=== PATIENT | male | born 1975 | race Caucasian/White ===

== ENCOUNTER → 2021-01-13 15:08 | Outpatient (CLI) | payer BC, SELFPAY ==
--- NOTE | ~2021-01-13 | XR_ITS ---
XR foot LT 2V DATE: 01/13/2021 15:20 INDICATION: Left foot pain TECHNIQUE: PA and lateral views of left foot COMPARISON: None FINDINGS: There is slight plantar and mild posterior calcaneal enthesopathy. There is mild joint space narrowing at the first metatarsophalangeal joint. No fracture or dislocation, periosteal reaction or bone destruction. IMPRESSION: Slight plantar and mild posterior calcaneal enthesopathy Reviewed, dictated and finalized at location A.
== END ==
PROVIDERS: PCP Family Medicine; Visit Provider Family Medicine
DX: M79.672 Pain in left foot (principal); M77.32 Calcaneal spur, left foot
CPT/HCPCS: 73620

== ENCOUNTER 2021-02-27 01:25 | Day surgery (SDC) | payer BC, SELFPAY ==
[2021-02-08 15:15] VITALS: BMI 29.2
[2021-02-27 06:22] VITALS: BMI 29.2
[2021-02-27 06:25] VITALS: BP 140/83; PULSE 96; RESP 18; TEMP 36; O2SAT 97
[2021-02-27] MEDS: LACTATED RINGERS 1,000 ML 150 ML IV CONT (06:27)
--- NOTE | 2021-02-27 07:05 | WPDANESEPPF ---
Anes - Initial Pre Proc Eval Procedure: Operation Date: 02/27/21 07:30 Proposed Procedures p Screening Colonoscopy - Alber Jean-Baptiste MD Date/Time: 02/27/21 07:05 Surgeon: Alber Jean-Baptiste MD Pre Op Diagnosis: neoplasm screening Patient Data Age: 45 Gender: M Height: 1.78 m Weight: 92.6 kg Last Vital Signs Temp 36.0 C L 02/27/21 06:25 Pulse 96 02/27/21 06:25 Resp 18 02/27/21 06:25 BP 140/83 02/27/21 06:25 Pulse Ox 97 02/27/21 06:25 Allergies Allergy/AdvReac Type Severity Reaction Status Date / Time hydrochlorothiazide Allergy Unknown Dizziness Verified 02/27/21 06:19 Home Medications Medication Instructions Recorded Confirmed Type cholecalciferol (vitamin D3) 25 25 mcg PO DAILY 04/06/19 02/27/21 History mcg (1,000 unit) tablet esomeprazole magnesium 20 mg 20 mg PO DAILY 04/06/19 02/27/21 History capsule,delayed release amlodipine 10 mg tablet 10 mg PO DAILY #90 tablet 07/19/20 02/27/21 Rx lisinopril 40 mg tablet 40 mg PO DAILY #90 tablet 07/22/20 02/27/21 Rx lorazepam 0.5 mg tablet 0.5 mg PO TID PRN #15 tablet 08/31/20 02/27/21 Rx fenofibrate 160 mg tablet 160 mg PO DAILY #90 tablet 01/10/21 02/27/21 Rx Patient hx anesthesia problems: none Family hx anesthesia problems: none Results Review: All pre-operative results and documents have been reviewed as part of the pre-operative evaluation. [facility] Past Medical History Medical History (Updated 02/27/21 @ 07:06 by Sudeep Alonso MD) Chronic GERD HLD (hyperlipidemia) HTN (hypertension) GELY (obstructive sleep apnea) Family History Family History Father Hypertension Mother Hypertension Cerebrovascular accident Sibling Hypertension Social History Social History Smoking status: Never smoker Second hand tobacco smoke exposure: No Alcohol intake: current Drinks per week: 3 Substance use: never Substance use type: does not use Living arrangements: with family Gender identity (if verbalized by the patient): Male Sexual Orientation (if Verbalized by the Patient): Straight or Heterosexual Spiritual care concerns: No Anes - Eval Final PreProcedure Day of Procedure 02/27/21 07:05 Patient weight: overweight Heart: regular rate and rhythm Lungs: clear to auscultation and normal air movement Airway: Mallampati scale class II Neurological: alert and oriented Last oral intake: >/= 8 hours ASA classification: II Emergent: no Anesthetic plan: proceed Anesthesia type and monitoring: general GIVS Results Review: All pre-operative results and documents have been reviewed as part of the pre-operative evaluation. Informed Consent: The patient's anesthetic plan and its attendant risks and benefits were discussed with the patient/family/POA. Questions were solicited and answers provided to the satisfaction of the patient/family/POA.
--- NOTE | 2021-02-27 07:13 | WPDGICN ---
Assessment and Plan Assessment and plan (1) Malignant neoplasm screen: Code(s): Z12.9 - Encounter for screening for malignant neoplasm, site unspecified Status: Acute Assessment and Plan: Patient presents for screening colonoscopy. Further recommendations will be given after endoscopy. GI Consult Note Consult date/time: 02/27/21 07:13 HPI: David Guy Jr. is a 45 year old male Presents for screening colonoscopy. Patient states his current weight appetite bowel movements are normal. Family history noncontributory. He reports 1 brief episode rectal bleeding 4 months ago. Patient denies any abdominal pain. He did have a colonoscopy perhaps 20 years ago that was performed for Constipation.. No specific findings were identified. Review of Systems Review of Systems: All systems reviewed & are unremarkable except as noted in HPI and below PMFSH Past Medical History Medical History (Updated 02/27/21 @ 07:06 by Sudeep Alonso MD) Chronic GERD HLD (hyperlipidemia) HTN (hypertension) GELY (obstructive sleep apnea) Family History Family History Father Hypertension Mother Hypertension Cerebrovascular accident Sibling Hypertension Social History Social History Smoking status: Never smoker Second hand tobacco smoke exposure: No Alcohol intake: current Drinks per week: 3 Substance use: never Substance use type: does not use Living arrangements: with family Gender identity (if verbalized by the patient): Male Sexual Orientation (if Verbalized by the Patient): Straight or Heterosexual Spiritual care concerns: No Meds Home Medications and Allergies Home Medications Medication Instructions Recorded Confirmed Type cholecalciferol (vitamin D3) 25 25 mcg PO DAILY 04/06/19 02/27/21 History mcg (1,000 unit) tablet esomeprazole magnesium 20 mg 20 mg PO DAILY 04/06/19 02/27/21 History capsule,delayed release amlodipine 10 mg tablet 10 mg PO DAILY #90 tablet 07/19/20 02/27/21 Rx lisinopril 40 mg tablet 40 mg PO DAILY #90 tablet 07/22/20 02/27/21 Rx lorazepam 0.5 mg tablet 0.5 mg PO TID PRN #15 tablet 08/31/20 02/27/21 Rx fenofibrate 160 mg tablet 160 mg PO DAILY #90 tablet 01/10/21 02/27/21 Rx Allergies Allergy/AdvReac Type Severity Reaction Status Date / Time hydrochlorothiazide Allergy Unknown Dizziness Verified 02/27/21 06:19 Vital Signs Vital Signs - 24 hr 02/27/21 06:25 Temperature 96.8 F L Pulse Rate 96 Respiratory Rate 18 Blood Pressure 140/83 Pulse Oximetry 97 Exam Narrative: Physical exam reveals patient be alert. Vital signs stable. HEENT exam is unremarkable. Patient is anicteric. Lungs are clear to auscultation and percussion. Heart is without murmur or extra sounds. Abdominal exam bowel sounds present soft nontender with no organomegaly. Digital external rectal exam is normal.
[2021-02-27 07:44] VITALS: BP 107/72; PULSE 89; RESP 17; O2SAT 99
[2021-02-27 07:54] VITALS: BP 113/72; PULSE 75; RESP 18; O2SAT 98
[2021-02-27 08:04] VITALS: BP 132/90; PULSE 68; RESP 15; O2SAT 99
== END 2021-02-27 08:08 | disposition home or self-care (01) ==
PROVIDERS: PCP Family Medicine; Visit Provider Internal Medicine Gastroenterology
PROC: 0DJD8ZZ Inspection of Lower Intestinal Tract, Via Natural or Artificial Opening Endoscopic (ICD-10-PCS; CPT 45378; principal; 2021-02-27 07:30)
DX: Z12.11 Encounter for screening for malignant neoplasm of colon (principal); K64.8 Other hemorrhoids; I10 Essential (primary) hypertension; E78.5 Hyperlipidemia, unspecified; K21.9 Gastro-esophageal reflux disease without esophagitis; G47.33 Obstructive sleep apnea (adult) (pediatric)
CPT/HCPCS: 45378; J2704; J7120

== ENCOUNTER 2024-02-17 08:11 | Outpatient (CLI) | payer BC, SELFPAY ==
--- NOTE | ~2024-02-17 | US_ITS ---
EXAMINATION: US soft tissue LE DATE: 02/17/2024 08:26 INDICATION: Localized swelling, mass or lump at the medial left lower limb TECHNIQUE: Multiple grayscale and Doppler ultrasound images of the region of concern at the distal me dial left lower leg were obtained. COMPARISON: None FINDINGS/IMPRESSION: The palpable abnormality corresponds to a nonspecific 3.1 x 0.6 x 1.4 cm lenticular anechoic fluid co llection without internal vascular flow or surrounding hyperemia on color Doppler. Differential would include hematoma/seroma or abscess in the appropriate clinical settings. Reviewed, dictated and finalized at location B. 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
== END 2024-02-17 08:12 | disposition home or self-care (01) ==
LOC: MICIMG 08:12
PROVIDERS: PCP Family Medicine; Visit Provider Physician Assistant
DX: R22.42 Localized swelling, mass and lump, left lower limb (principal)
CPT/HCPCS: 76882

== ENCOUNTER 2025-03-25 14:09 | Outpatient (CLI) | payer BC, SELFPAY ==
[2025-03-25 15:07] LABS: Influenza A QL RT-PCR Negative (Negative); Influenza B QL RT-PCR Negative (Negative); RSV RNA, RT-PCR Negative (Negative); SARS-CoV-2 RNA PCR Negative (Negative)
--- OUTSIDE RECORDS SUMMARY | 2025-03-25 15:12 | XMS_ITS | Clinical Summary ---
Author Organization [facility] [address] Address [address] [place] [address] Care Team Providers Care Stenciler Name Role Phone Romario Pineda MD Primary Care Provider Allergies Active Allergy Reactions Criticality Noted Date Comments Mold Headache Reaction: HEADACHE Medications fenofibrate (TRIGLIDE) 160 mg tablet 10/06/2021 Active lisinopriL (PRINIVIL,ZESTRI L) 40 mg tablet Take 40 mg by mouth daily 09/19/2021 Active amLODIPine (NORVASC) 5 mg tablet Take 10 mg by mouth daily 07/17/2021 Active Active Problems No known active problems Social History Tobacco Use Types Packs/Day Years Used Date Smoking Tobacco: Never Personal Safety Answer Date Recorded Getting School Help Needed Not on file 06/21 Sex and Gender Information Value Date Recorded Sex Assigned at Not on file 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[employer] Gender Identity Male 10/11/2021 8:00 AM CDT Sexual Orientation Not on file Last Filed Vital Signs Vital Sign Reading Time Taken Comments Blood Pressure 124/82 10/11/2021 2:09 PM CDT Pulse 94 10/11/2021 2:09 PM CDT Temperature 36.8 C (98.3 F) 10/11/2021 2:09 PM CDT Respiratory Rate - - Oxygen Saturation 96% 10/11/2021 2:09 PM CDT Inhaled Oxygen Concentration - - Weight 94.9 kg (209 lb 4.8 oz) 10/11/2021 2:09 P M CDT Height 177.8 cm (5' 10) 10/11/2021 2:09 PM CDT Body Mass Index 30.03 10/11/2021 2:09 PM CDT Plan of Treatment Not on file Insurance [address] [place] [id number] [facility] [address] [place] [id number] Care Teams Stenciler Relationship Specialty Start Date End Date Romario Pineda MD [address] [place] [address] PCP - General 04/26/08
== END 2025-03-25 14:10 | disposition home or self-care (01) ==
LOC: ANHLAB 14:10
PROVIDERS: PCP Family Medicine; Visit Provider Physician Assistant
DX: J02.9 Acute pharyngitis, unspecified (principal); Z20.822 Contact with and (suspected) exposure to COVID-19
CPT/HCPCS: 87637